=== PATIENT | male | born 1960 | race Caucasian/White ===

== ENCOUNTER 2019-11-08 07:45 | Day surgery (SDC) | payer OTHER, SELFPAY ==
--- NOTE | 2019-11-08 | PATH_ITS ---
[facility] Accession Number: [id number] . 01 Material submitted: . colon - COLON POLYP BIOPSY AT 50 CM . 02 Diagnosis: Colon Polyp at 50 cm, Biopsy: Tubular adenoma. MRV 11/11/2019 1034 Local . 02 Electronically signed: . Coleman Tolbert MD, PhD, Pathologist NPI- [id number] . 01 Gross description: . COLON POLYP BIOPSY AT 50 CM: Received in formalin is 1 fragment(s) of herrera, soft tissue measuring 0.4 x 0.4 x 0.3 cm submitted entirely in 1 cassette(s) /[facility] 11/08/2019 1927 Local . 02 Pathologist provided ICD-10: D12.6 . 02 CPT . 127082 Performed at: 01 [facility] [address], [place], [place] [id number] MD Sd Parmar MD Phone: [phone] Performed at: 02 [facility] [address] [place], [place] [id number] MD Sydney Hernandez MD Phone: [phone]
[2019-11-08] MEDS: SODIUM CHLORIDE 0.9% 1,000 ML 200 ML IV (08:45)
[2019-11-08 08:50] VITALS: BP 149/92; PULSE 75; RESP 14; TEMP 36.7; O2SAT 99; BMI 24.1
--- NOTE | 2019-11-08 09:09 | PM.HP.1 ---
History of Present Illness History of Present Illness Date Patient Seen: 11/08/19 Time Patient Seen: 09:09 Chief complaint: [id number] SCREENING COLONOSCOPY Narrative: This is a 59-year-old man with history of seizure disorder controlled on Dilantin. His last seizure was 13 years ago. He has no history of melena, hematochezia, unexplained abdominal pain, or explained weight loss. He says he sometimes has a rising pain that goes up his leg and up into his rectum. Otherwise no related symptoms. He has no family history of colon polyps or colon cancers. He has never had a screening colonoscopy, this is his 1st 1. Other than the seizure history he has had some sinus problems he has had pneumonia before any has some arthritis in his hands. He takes no medications other than his Dilantin for his seizure disorder. ROS: Thirteen system review is otherwise negative other than as mentioned below and in HPI. PE: GENERAL: Well groomed and cooperative. Appears stated age. Answers questions promptly and appropriately. Vital signs noted. HENT: Normocephalic, atraumatic. Hearing intact. Oral mucosa is pink and moist. EYES: Conjunctiva pink, sclera white, no periorbital swelling. CARDIOVASCULAR: Regular rate. No pedal edema. RESPIRATORY: Non-tachypneic, breathing comfortably on room air. GASTROINTESTINAL: Abdomen soft and non-distended GENITALURINARY: No flank tenderness. MUSCULOSKELETAL: Equal tone and mass bilaterally. SKIN: Warm, dry, soft, appropriate color for ethnicity. No other lesions, rashes, or wounds. NEURO: Alert and Oriented X 3. No gross sensory deficits, or cognitive issues. PSYCH: Appropriate affect and mood. Patient History Medical History Arthritis (Acute) History of pneumonia (Acute) Seizures (Acute) Sinus drainage (Acute) Wears glasses (Acute) Surgical History H/O hernia repair (Acute) History of hydrocelectomy (Acute) Family & Social History Social History: household members none Tobacco & Substance use: alcohol intake former Substance Use Type does not use Meds Home Medications and Allergies Home Medications Medication Instructions Recorded Confirmed Type phenytoin sodium extended 200 mg PO BID 11/08/19 11/08/19 History phenytoin sodium extended 30 mg PO SEEINSTR 11/08/19 11/08/19 History [Dilantin] Allergies Allergy/AdvReac Type Severity Reaction Status Date / Time ibuprofen AdvReac Unknown per Verified 11/08/19 09:05 neurologist r/t seizures ASPIRIN AdvReac Unknown per Uncoded 11/08/19 09:05 neurologist r/t seizures Exam Vital Signs (past 8 hours): - 11/08/19 08:50 Temperature 98.0 F Pulse Rate 75 Respiratory Rate 14 Blood Pressure 149/92 H Pulse Oximetry 99 Oxygen Delivery Method Room Air Assessment & Plan Assessment and plan (1) At average risk for colon cancer: Current visit: Yes Status: Acute (2) Seizure disorder: Current visit: Yes Status: Acute Assessment & Plan narrative: Risks and benefits of screening colonoscopy and possible polypectomy were discussed with the patient including risk of bleeding, perforation, need for additional procedures, risks of anesthesia. The patient desires to proceed with the colonoscopy procedure. Time Spent With Patient Time with patient: 15-24 minutes Quality VTE Deep Vein Thrombosis/Pulmonary Embolism Present on Admission: No
--- NOTE | 2019-11-08 09:16 | PM.OP.ENDO ---
Operative Date/Time/Diagnoses Date of procedure: 11/08/19 Time of procedure: 09:17 Pre-op diagnosis: average risk for colon cancer, never had a screening colonoscopy Post-op diagnosis: other (Adenomatous appearing polyp at 50 cm, completely removed) Procedure & Clinicians Study performed: Colonoscopy and polypectomy with hot snare Same procedure as scheduled: Yes Indications: 51-year-old man at average risk for colon cancer, never had a colonoscopy Surgeon: Pamella Zuniga Procedure Notes SCOAP/Timeout: Performed Procedure in detail: The patient was brought to the room and placed in left lateral decubitus position with all bony prominences padded. A time-out was performed and then the patient was given procedural sedation starting with 4 mg of Versed and 100 mcg of fentanyl. A total of 5 mg of Versed and 150 micro g of fentanyl were given for the entire procedure. Vitals were monitored throughout the procedure and remained stable. Once adequately sedated the procedure was begun. A rectal exam was performed revealing no abnormalities. The colonoscope was then introduced to the rectum and advanced to the cecum in the usual fashion. The cecum was identified by the appendiceal orifice, the mucosal tri-fold, and the ileocecal valve. Polyp was found at 50 cm which was adenomatous appearing. It was completely removed with hot snare. The scope was then retracted while rotating side to side and examining each mucosal fold. At the conclusion of the procedure retroflexion was performed and small grade 1-2 internal hemorrhoids without stigmata of bleeding were seen. The scope was then withdrawn from the rectum the procedure was concluded. The patient tolerated the procedure well and was transferred to the PACU in stable condition. Scope withdrawal time: 8 Sedation minutes: 22 Findings: polyp Specimen(s): other (Polyp from 50 cm) Complications: none Impression: Single colon polyp, otherwise normal Post-procedure Recommendations: Colonscopy in 10 years (As long as polyp is low-grade on pathology results) Follow up: as needed Disposition: PACU
[2019-11-08] MEDS: fentaNYL 250 MCG/5 ML INJ IV (09:18)
[2019-11-08] MEDS: MIDAZOLAM 5 MG/ML VIAL IM (09:19)
[2019-11-08 09:44] VITALS: BP 136/87; PULSE 68; RESP 13; TEMP 35.7; O2SAT 100
[2019-11-08 09:49] VITALS: BP 122/79; PULSE 63; RESP 12; O2SAT 100
[2019-11-08 10:03] VITALS: BP 132/91; PULSE 67; RESP 16; TEMP 37; O2SAT 96
--- NOTE | 2019-11-08 10:23 | SUR.PHASEII ---
Pt [id number] when ready, beely soft tolerating liquids. Pt left unit in stable condition.
== END 2019-11-08 10:22 | disposition home or self-care (01) ==
PROVIDERS: PCP Family Medicine; Referring Provider Family Medicine; Visit Provider Surgery
PROC: 0DJD8ZZ Inspection of Lower Intestinal Tract, Via Natural or Artificial Opening Endoscopic (ICD-10-PCS; CPT 45378; principal; 2019-11-08 09:15)
DX: Z12.11 Encounter for screening for malignant neoplasm of colon (principal); K64.1 Second degree hemorrhoids; D12.6 Benign neoplasm of colon, unspecified
CPT/HCPCS: 45385; 99152; J2250; J3010